=== PATIENT | female | born 1970 | race African-American/Black ===

== ENCOUNTER 2024-06-11 14:07 | Emergency (ER) | payer SELFPAY ==
[2024-06-11 14:31] VITALS: BP 137/87; PULSE 70; RESP 18; TEMP 36.4; O2SAT 98
--- NOTE | 2024-06-11 16:30 | ED.SKABFB ---
HPI - Skin/Abscess/Foreign Bdy General Chief complaint: Skin/Abscess/Foreign Body Stated complaint: i have an irritating bump on my back Time Seen by Provider: 06/11/24 16:28 Source: patient Mode of arrival: ambulatory Limitations: no limitations History of Present Illness HPI narrative: Patient is a 54-year-old male who presents the ED with report of a lump to her right upper back. Patient reports she has had the lump for several years. She had it drained around 3 years ago. States over the last few days, it has become more irritated and inflamed, painful. Concerned it is infected. Denies fevers. Denies history of diabetes. Related Data Allergies Allergy/AdvReac Type Severity Reaction Status Date / Time metronidazole Allergy Mild Itching Verified 06/11/24 14:35 Review of Systems Review of Systems: All systems reviewed & are unremarkable except as noted in HPI. All systems reviewed & are unremarkable except as noted in HPI and below Exam Narrative: GENERAL: Well appearing, obese with BMI of 38.2, non-toxic, in no acute distress. HEAD: Normocephalic, atraumatic. RESPIRATORY: Airway patent, respirations nonlabored. CARDIOVASCULAR: Regular rate and rhythm MUSCULOSKELETAL: Moves all extremities. No gross deformities. SKIN: Warm, dry, normal color. Well circumscribed approx 6x6cm region of induration to R upper back in scapular region with overlying superficial area of fluctuance, focal TTP. Small abrasion over fluctuant region. NEURO: A&O X3. Speech clear. PSYCHIATRIC: Appropriate mood and affect. Normal interaction. Course Vital Signs Vital signs: Vital Signs Temperature 97.5 F L 06/11/24 14:31 Pulse Rate 70 06/11/24 14:31 Respiratory Rate 18 06/11/24 14:31 Blood Pressure 137/87 06/11/24 14:31 Pulse Oximetry 98 06/11/24 14:31 Temperature 97.5 F L 06/11/24 14:31 Pulse Rate 70 06/11/24 14:31 Respiratory Rate 18 06/11/24 14:31 Blood Pressure 137/87 06/11/24 14:31 Pulse Oximetry 98 06/11/24 14:31 Procedures Abscess I/D back: Date of Incision: 06/11/24 Time of Incision: 16:50 Side (if applicable): right (upper back) Sedation/analgesia: none Local Anesthetic: lidocaine 1% Amount of anesthesia used (mL): 4 Technique: incised with #11 blade and probed loculations Amount of fluid expressed (mL): 5 Irrigation: Yes Packing used?: plain I&D Results: Pus and Blood Complications: other (none) MDM - Skin/Abscess/Foreign Bdy MDM Narrative Medical decision making narrative: Exam seems most consistent with sebaceous cyst with superimposed infection/abscess. No signs of systemic infection. Afebrile. I&D was performed. Wound culture was obtained. Patient was started on antibiotics. Recommend f/u with PCP, surgery for further evaluation/management. Given return precautions. Discharged in stable condition. Medical Records Attestation: I reviewed the patient's medical records. Discharge Plan Discharge Clinical Impression: Sebaceous cyst Abscess of skin or subcutaneous tissue Qualifiers: Site of cutaneous abscess: trunk Site of cutaneous abscess of trunk: back Qualified Code(s): L02.212 - Cutaneous abscess of back [any part, except buttock] Patient Disposition: Home, Self-Care Condition: Stable Instructions: Antibiotic Form, Abscess (ED), Cyst (ED), Abscess Incision and Drainage (DC) Additional Instructions: Take antibiotics as prescribed. Recommend Tylenol/ibuprofen as needed for pain. Follow-up with specialist for further evaluation. Recommend warm compresses to wound. If the packing does not fall out on its own within the next 2-3 days, you may remove this yourself by gently pulling on the string. Return to the ED for new or worsening concerns. Patient Language: Thai Prescriptions: New sulfamethoxazole-trimethoprim [Bactrim DS] 800-160 mg tablet 1 tablet PO Q12H 7 Days Qty: 14 0RF Follow-up/Referrals: Mitesh Vides M.D. [Physician] - (DERMATOLOGY) Naeem Tay MD [Physician] - (PLASTIC SURGERY) PHYSICIAN,[employer] INSPECTOR [Non-Staff] - Mitesh López DO [Physician] - (GENERAL SURGERY) Time of Disposition: 17:12
[2024-06-11] MEDS: LIDOCAINE 1% LOCAL INJ 10 ML VIAL (16:52)
[2024-06-11] MEDS: SULFAMETHOXAZOLE/TRIMETHOPRIM 800/160 MG DS TABLET 1 TAB PO (16:52)
== END 2024-06-11 17:32 | disposition home or self-care (01) ==
LOC: ANHED 17:05
PROVIDERS: Emergency Provider Physician Assistant
DX: L72.3 Sebaceous cyst (principal)
CPT/HCPCS: 10060; 10061; 87070; 87075; 87181; 87205; 99283; A9270; J2003